=== PATIENT | female | born 1930 | race Caucasian/White ===

== ENCOUNTER 2018-05-14 12:04 | Inpatient (IN) ==
--- NOTE | 2018-05-14 12:19 | Emergency Department Note ---
Disposition Clinical Impression: Closed comminuted intertrochanteric fracture of right femur Disposition: Admitted As Inpatient Condition: Good General Adult HPI - General Chief complaint: ED Fall Stated complaint: fall Time Seen by Provider: 05/14/18 12:11 Source: patient, EMS Limitations: no limitations - History of Present Illness Pain Scale: 8 - Related Data Home Medications Medication Instructions Recorded Confirmed No Known Home Drugs 05/14/18 05/14/18 Allergies Allergy/AdvReac Type Severity Reaction Status Date / Time No Known Allergies Allergy Verified 08/26/16 11:55 Past Medical History - Past Medical History Medical history: Reports: arthritis, other Surgical history: Reports: appendectomy, cataract, cholecystectomy, hysterectomy , knee replacement (Left), orthopedic, other (Right rotator cuff repair), other (Tonsillectomy) Psychiatric history: Reports: depression - Social History Smoking Status: Former smoker Smokeless Tobacco Status: No Alcohol use: Reports: occasionally Drug use: Reports: none Physical Exam - General Limitations: no limitations General appearance: alert Course Vital Signs Temperature 98.3 F 05/14/18 12:12 Pulse Rate 67 05/14/18 12:12 Respiratory Rate 16 05/14/18 12:12 Blood Pressure 178/74 05/14/18 12:12 O2 Sat by Pulse Oximetry 100 05/14/18 12:12 Temperature 98.2 F 05/14/18 16:24 Pulse Rate 88 05/14/18 16:24 Respiratory Rate 18 05/14/18 16:24 Blood Pressure 153/61 05/14/18 16:24 O2 Sat by Pulse Oximetry 98 05/14/18 16:56 Oxygen Delivery Oxygen Delivery Room Air Medical Decision Making - Lab Data Result diagrams: 05/14/18 13:53 05/14/18 13:53 Lab Results 05/14/18 05/14/18 05/14/18 Range/Units 13:53 13:53 13:53 WBC 10.2 (4.3-11.1) K/mcL RBC 4.42 (3.82-4.97) M/mcL Hgb 13.3 (11.5-15.4) g/dL Hct 41.1 (35.3-44.9) % MCV 93.0 (83.0-100.0) fL MCH 30.1 (28.0-33.3) pg MCHC 32.4 (31.6-35.5) g/dL RDW 13.9 (11.5-14.5) % Plt Count 341 (140-400) K/mcL MPV 9.5 (9.4-12.4) fL Immature Gran % 0.4 (0-4) % Seg Neutrophils % 79.8 % Lymphocytes % 12.3 % Monocytes % 5.6 % Eosinophils % 1.6 % Basophils % 0.3 % Neutrophils # 8.2 (1.6-8.9) K/mcL Lymphocytes # 1.3 (0.6-4.6) K/mcL Monocytes # 0.6 (0.0-1.3) K/mcL Eosinophils # 0.2 (0.0-0.6) K/mcL Basophils # 0.0 (0.0-0.2) K/mcL PT 11.2 (9.4-12.1) Seconds INR 1.0 Sodium 140 (136-145) mEq/L Potassium 4.1 (3.5-5.1) mEq/L Chloride 107 (98-107) mEq/L Carbon Dioxide 25 (23-29) mEq/L BUN 20 (8-23) mg/dL Creatinine 0.84 (0.60-1.20) mg/dL Est GFR ( Amer) > 60 (> 60) Est GFR (Non-Af Amer) > 60 (> 60) BUN/Creatinine Ratio 24 (6-26) Glucose 99 (70-105) mg/dL Calculated Osmolality 293 (280-300) Calcium 9.2 (8.6-10.3) mg/dL Total Bilirubin 0.5 (0.3-1.0) mg/dL AST 18 (13-39) Units/L ALT 13 (7-52) Units/L Alkaline Phosphatase 75 (34-104) Units/L Serum Total Protein 6.4 (6.4-8.9) g/dL Albumin 3.8 (3.5-5.7) g/dL Globulin 2.6 (2.4-3.5) g/dL Albumin/Globulin Ratio 1.5 (1.1-2.2) Blood Type Antibody Screen 05/14/18 Range/Units 13:53 WBC (4.3-11.1) K/mcL RBC (3.82-4.97) M/mcL Hgb (11.5-15.4) g/dL Hct (35.3-44.9) % MCV (83.0-100.0) fL MCH (28.0-33.3) pg MCHC (31.6-35.5) g/dL RDW (11.5-14.5) % Plt Count (140-400) K/mcL MPV (9.4-12.4) fL Immature Gran % (0-4) % Seg Neutrophils % % Lymphocytes % % Monocytes % % Eosinophils % % Basophils % % Neutrophils # (1.6-8.9) K/mcL Lymphocytes # (0.6-4.6) K/mcL Monocytes # (0.0-1.3) K/mcL Eosinophils # (0.0-0.6) K/mcL Basophils # (0.0-0.2) K/mcL PT (9.4-12.1) Seconds INR Sodium (136-145) mEq/L Potassium (3.5-5.1) mEq/L Chloride (98-107) mEq/L Carbon Dioxide (23-29) mEq/L BUN (8-23) mg/dL Creatinine (0.60-1.20) mg/dL Est GFR ( Amer) (> 60) Est GFR (Non-Af Amer) (> 60) BUN/Creatinine Ratio (6-26) Glucose (70-105) mg/dL Calculated Osmolality (280-300) Calcium (8.6-10.3) mg/dL Total Bilirubin (0.3-1.0) mg/dL AST (13-39) Units/L ALT (7-52) Units/L Alkaline Phosphatase (34-104) Units/L Serum Total Protein (6.4-8.9) g/dL Albumin (3.5-5.7) g/dL Globulin (2.4-3.5) g/dL Albumin/Globulin Ratio (1.1-2.2) Blood Type O POSITIVE Antibody Screen NEGATIVE Attestation Statement - Attestation Attestation: I examined this patient and my medical decision-making was reviewed with the Resident Physician. I agree with the documented findings, disposition and treatment plan as described except to the extent set forth below. [id number] time provided Patient presents to emergency department after mechanical fall. She complains of right hip pain. She denies other injury. She appears in no acute distress on exam. Range of motion limited with flexion at the right hip due to discomfort.
--- NOTE | 2018-05-14 12:23 | Emergency Department Note ---
Disposition Clinical Impression: Closed comminuted intertrochanteric fracture of right femur Qualifiers: Encounter type: initial encounter Qualified Code(s): S72.141A - Displaced intertrochanteric fracture of right femur, initial encounter for closed fracture Disposition: Admitted As Inpatient Condition: Good Time of Disposition: 13:06 Fall HPI - General Chief Complaint: ED Fall Stated Complaint: fall Time Seen by Provider: 05/14/18 12:11 Source: patient, EMS Mode of arrival: EMS Limitations: no limitations Nursing Notes Reviewed: Yes Vital Signs Reviewed: Yes - History of Present Illness HPI Narrative: 87-year-old female presents emergency department via EMS after fall. She believes she tripped over oh feet and landed on her right hip which is a painful at this time. She was unable to get up and hit her life alert her EMS was able to bring are here for evaluation. She denies any head injury. Denies any neck pain. Denies any other prodromal symptoms prior such as chest pain headache shortness of breath. Does not take any anticoagulants. She lives at home with a significant other. She has a walker that she uses that is not prescribe to her. Pt Subjective Complaint: fall - Related Data Home Medications Medication Instructions Recorded Confirmed No Known Home Drugs 05/14/18 05/14/18 Allergies Allergy/AdvReac Type Severity Reaction Status Date / Time No Known Allergies Allergy Verified 08/26/16 11:55 All systems ED: reviewed and negative except as stated. Review of Systems: As Per HPI Constitutional: Denies: fever, chills Cardiovascular: Denies: chest pain Respiratory: Denies: dyspnea Gastrointestinal: Denies: abdominal pain, nausea Musculoskeletal: Reports: arthralgia, myalgia. Denies: back pain, neck pain Integumentary: Denies: abrasion Neurological: Denies: headache, confusion Fall PMH - Past Medical History Medical history: Reports: arthritis, other Surgical history: Reports: appendectomy, cataract, cholecystectomy, hysterectomy , knee replacement (Left), orthopedic, other (Right rotator cuff repair), other (Tonsillectomy) Psychiatric history: Reports: depression - Social History Smoking Status: Former smoker Alcohol use: Reports: occasionally Drug use: Reports: none Physical Exam - General Limitations: no limitations General appearance: alert, in no apparent distress - Head Head exam: atraumatic, normocephalic, normal inspection - Eye Eye exam: Present: normal appearance, PERRL, EOMI, other (She has macular degeneration) - ENT ENT exam: normal exam, normal oropharynx, mucous membranes moist, TM's normal bilaterally - Neck Neck exam: Present: normal inspection, full ROM, trachea midline. Absent: tenderness - Expanded Neck Exam Neck exam focused ED: Absent: midline tenderness - Chest Chest inspection: Present: normal inspection, symmetric chest wall rise - Respiratory Respiratory exam: Present: normal lung sounds bilaterally. Absent: respiratory distress, wheezes - Cardiovascular Cardiovascular exam: Present: regular rate, normal rhythm, normal heart sounds - Abdominal Exam Abdominal exam: Present: soft, Non-Tender, normal bowel sounds. Absent: tenderness, distention, guarding, rebound, rigidity - Expanded Lower Extremity Exam Hip/Pelvis exam: Present: tenderness (Right hip), shortening, other (Pain with logrolling of the right lower extremity). Absent: swelling, ecchymosis, deformity, external rotation, internal rotation Upper leg exam: Present: normal inspection Knee exam: Present: normal inspection, full ROM (Limited due to pain on the right) Lower leg exam: Present: normal inspection, full ROM Ankle exam: Present: normal inspection, full ROM Foot/toe exam: Present: normal inspection, full ROM Neurovascular/Tendon exam: Absent: motor deficit, sensory deficit, tendon deficit - Neurological Exam Neurological exam: Present: alert, oriented X3 - Psychiatric Psychiatric exam: Present: normal affect, normal mood - Skin Skin exam: Present: warm, dry, intact, normal color Course Course Narrative: Patient presents with right hip pain after mechanical fall. No head injury or neck pain. No anticoagulant use. No obvious shortening or rotation of the lower extremity that is painful to palpation. Range of motion limited to pain. X-ray to evaluate for fracture or dislocation. She has deferred pain medication at this time. - Reevaluation(s) Reevaluation #1: X-ray reveals right comminuted intertrochanteric hip fracture. Pain is tolerable at this time. Patient will be admitted. Reevaluation #2: Unfortunate ultrasound not available to perform nerve block. Patients pain is well-controlled at this time. She is able to set up at a 90 angle without any discomfort. She is currently eating a meal without any issues. Reevaluation #3: Review for labs were unremarkable. - Consultations Consultation #1: Spoke with the orthopedic on-call Dr. Alegria who will see the patient consultation requesting the patient be admitted to hospitalist service. Routine preadmission labs ordered. Time: 13:04 Consultation #2: Spoke with on-call hospitalist kimberly Thornton to admit for a closed right comminuted hip fracture. No further orders at this time Vital Signs Temperature 98.3 F 05/14/18 12:12 Pulse Rate 67 05/14/18 12:12 Respiratory Rate 16 05/14/18 12:12 Blood Pressure 178/74 05/14/18 12:12 O2 Sat by Pulse Oximetry 100 05/14/18 12:12 Temperature 98.3 F 05/14/18 12:12 Pulse Rate 77 05/14/18 14:51 Respiratory Rate 16 05/14/18 14:51 Blood Pressure 141/71 05/14/18 14:51 O2 Sat by Pulse Oximetry 97 05/14/18 14:51 Oxygen Delivery Oxygen Delivery Room Air Fall - MDM Narrative Medical decision making narrative: Patient was discussed with my attending physician who agrees with ED management and final disposition. They independently evaluated the patient. Please refer to their attestation to this encounter for additional information. This note was generated by [employer] voice recognition software and as a result grammatical or spelling errors may occur using this program. - Medical Records Medical records reviewed: Yes I reviewed the patient's medical records. - Lab Data Lab results reviewed: Yes I reviewed the patient's lab results. Result diagrams: 05/14/18 13:53 05/14/18 13:53 Lab Results 05/14/18 05/14/18 05/14/18 Range/Units 13:53 13:53 13:53 WBC 10.2 (4.3-11.1) K/mcL RBC 4.42 (3.82-4.97) M/mcL Hgb 13.3 (11.5-15.4) g/dL Hct 41.1 (35.3-44.9) % MCV 93.0 (83.0-100.0) fL MCH 30.1 (28.0-33.3) pg MCHC 32.4 (31.6-35.5) g/dL RDW 13.9 (11.5-14.5) % Plt Count 341 (140-400) K/mcL MPV 9.5 (9.4-12.4) fL Immature Gran % 0.4 (0-4) % Seg Neutrophils % 79.8 % Lymphocytes % 12.3 % Monocytes % 5.6 % Eosinophils % 1.6 % Basophils % 0.3 % Neutrophils # 8.2 (1.6-8.9) K/mcL Lymphocytes # 1.3 (0.6-4.6) K/mcL Monocytes # 0.6 (0.0-1.3) K/mcL Eosinophils # 0.2 (0.0-0.6) K/mcL Basophils # 0.0 (0.0-0.2) K/mcL PT 11.2 (9.4-12.1) Seconds INR 1.0 Sodium 140 (136-145) mEq/L Potassium 4.1 (3.5-5.1) mEq/L Chloride 107 (98-107) mEq/L Carbon Dioxide 25 (23-29) mEq/L BUN 20 (8-23) mg/dL Creatinine 0.84 (0.60-1.20) mg/dL Est GFR ( Amer) > 60 (> 60) Est GFR (Non-Af Amer) > 60 (> 60) BUN/Creatinine Ratio 24 (6-26) Glucose 99 (70-105) mg/dL Calculated Osmolality 293 (280-300) Calcium 9.2 (8.6-10.3) mg/dL Total Bilirubin 0.5 (0.3-1.0) mg/dL AST 18 (13-39) Units/L ALT 13 (7-52) Units/L Alkaline Phosphatase 75 (34-104) Units/L Serum Total Protein 6.4 (6.4-8.9) g/dL Albumin 3.8 (3.5-5.7) g/dL Globulin 2.6 (2.4-3.5) g/dL Albumin/Globulin Ratio 1.5 (1.1-2.2) Blood Type Antibody Screen 05/14/18 Range/Units 13:53 WBC (4.3-11.1) K/mcL RBC (3.82-4.97) M/mcL Hgb (11.5-15.4) g/dL Hct (35.3-44.9) % MCV (83.0-100.0) fL MCH (28.0-33.3) pg MCHC (31.6-35.5) g/dL RDW (11.5-14.5) % Plt Count (140-400) K/mcL MPV (9.4-12.4) fL Immature Gran % (0-4) % Seg Neutrophils % % Lymphocytes % % Monocytes % % Eosinophils % % Basophils % % Neutrophils # (1.6-8.9) K/mcL Lymphocytes # (0.6-4.6) K/mcL Monocytes # (0.0-1.3) K/mcL Eosinophils # (0.0-0.6) K/mcL Basophils # (0.0-0.2) K/mcL PT (9.4-12.1) Seconds INR Sodium (136-145) mEq/L Potassium (3.5-5.1) mEq/L Chloride (98-107) mEq/L Carbon Dioxide (23-29) mEq/L BUN (8-23) mg/dL Creatinine (0.60-1.20) mg/dL Est GFR ( Amer) (> 60) Est GFR (Non-Af Amer) (> 60) BUN/Creatinine Ratio (6-26) Glucose (70-105) mg/dL Calculated Osmolality (280-300) Calcium (8.6-10.3) mg/dL Total Bilirubin (0.3-1.0) mg/dL AST (13-39) Units/L ALT (7-52) Units/L Alkaline Phosphatase (34-104) Units/L Serum Total Protein (6.4-8.9) g/dL Albumin (3.5-5.7) g/dL Globulin (2.4-3.5) g/dL Albumin/Globulin Ratio (1.1-2.2) Blood Type O POSITIVE Antibody Screen NEGATIVE - Radiology Data Radiology results reviewed: Yes I reviewed the patient's radiology results. Pelvis X-Ray 05/14/18 12:18 IMPRESSION: Comminuted intertrochanteric fracture of the right femoral neck D/ / Peña Dangelo MD / Peña Dangelo MD Interpreting Provider: Peña Dangelo MD Chest X-Ray 05/14/18 12:39 IMPRESSION: No acute process. D/ / Peña Dangelo MD / Peña Dangelo MD Interpreting Provider: Peña Dangelo MD - EKG Data EKG attestation: Yes I reviewed and interpreted this EKG. EKG results narrative: EKG performed 05/14/2018 at 1315 normal sinus rhythm 64 beats per minute with right bundle branch block, no ST elevation or depression. Findings consistent with prior EKG performed 01/02/2012 with similar consistent findings. No acute ischemic changes.
[2018-05-14] MEDS ORDERED: Bupivacaine-MPF 0.25% 10 ML VIAL INFILT ONE ×2 (12:30→13:45)
[2018-05-14] MEDS ORDERED: Naloxone 0.4 MG/ML INJ IVP PRN (13:19)
[2018-05-14] MEDS ORDERED: Acetaminophen 325 MG TABLET PO PRN (13:19)
--- NOTE | 2018-05-14 13:40 | Internal Med History&Physical ---
Date of Encounter: 05/14/18 Time of Encounter: 13:00 Internal Medicine - H&P: HPI Chief complaint: Fall with the right hip pain Admitted From: Home Plans for Post Hospital Care: Home History of present illness: Ms. Medel is a 87 year old female with no significant past medical history who presents to the ER by EMS with the right hip pain and unable to bear weight after a fall happened this morning. Patient stated that she tripped over her feet and landed on her right hip since then she has severe pain in the right hip and unable to put any weight and ambulate. She had a further workup done in the emergency room, her pelvic x-ray showed comminuted inter trochanteric fracture of the right femoral neck. Patient is alert, awake and oriented to time place and person. Patient is still complaining about severe pain in the right hip. No visible bruise/laceration noticed right hip area Past Med Surg Social Fam HX - Past Medical History Medical history: arthritis, other Additional medical history: MACULAR DEGENERATION Psychiatric history: depression - Past Surgical History Surgical History: appendectomy, cataract, cholecystectomy, hysterectomy, knee replacement (Left), orthopedic, other (Right rotator cuff repair), other ( Tonsillectomy) Additional surgical history: ANKLE FRACTURE WITH REPAIR - Social History Smoking Status: Former smoker Smokeless Tobacco Status: No Alcohol use: occasionally Drug use: none - Additional Family History Additional family history: Family hsitory reviewed and non contribuitory to current problem. Internal Medicine - H&P: Meds No Known Home Drugs 05/14/18 [History] 3 Allergy/AdvReac Type Severity Reaction Status Date / Time No Known Allergies Allergy Verified 08/26/16 11:55 All Systems PM: A 10-system review of systems was performed and is negative for pertinent findings except as documented above in the HPI. Review of systems: All the systems are reviewed everything is benign except the systems and symptoms I mentioned in the history of present illness - Constitutional Vitals: Temp Pulse Resp BP Pulse Ox 98.3 F 67 16 178/74 100 05/14/18 12:12 05/14/18 12:12 05/14/18 12:12 05/14/18 12:12 05/14/18 12:12 General appearance: Present: cooperative, mild distress (With pain), A&O X 3, answers questions appropriately Exam: See below - Head Head exam: Present: atraumatic, normal inspection - Neck Neck exam general surgery: Present: full ROM, supple - Respiratory Respiratory exam: Present: decreased breath sounds. Absent: rales, respiratory distress, rhonchi, wheezes - Cardiovascular Cardiovascular exam: Present: RRR, +S1, +S2. Absent: tachycardia - GI/Abdominal GI/Abdominal exam: Present: normal bowel sounds, soft. Absent: rebound, rigid, tenderness - Extremities Exam Extremities exam: Present: tenderness (Right hip). Absent: calf tenderness, full ROM (Diminished range of motion in the right hip due to pain and fracture) , pedal edema - Back Exam Back exam: Absent: CVA tenderness (L), CVA tenderness (R) - Neurological Exam Neurological exam: Present: alert, oriented X3 - Psychiatric Psychiatric exam: Present: normal affect, normal mood - Skin Skin exam: Absent: rash Internal Med - H&P Results - Impressions ITS Impressions Pelvis X-Ray 05/14/18 12:18 IMPRESSION: Comminuted intertrochanteric fracture of the right femoral neck D/ / Peña Dangelo MD / Peña Dangelo MD Interpreting Provider: Peña Dangelo MD Chest X-Ray 05/14/18 12:39 IMPRESSION: No acute process. D/ / Peña Dangelo MD / Peña Dangelo MD Interpreting Provider: Peña Dangelo MD - Assessment and plan (1) Closed comminuted intertrochanteric fracture of right femur Current Visit: Yes Status: Acute Assessment and plan: Admit the patient into [facility] reviewed her pelvic x-ray showing comminuted inter trochanteric fracture of the right femoral neck Reviewed her labs - Normal WBC. Electrolytes WNL PT / INR - WNL EKG ordered ER attending already consulted ortho possible surgery in AM Reviewed CXR showed no acute infiltrates / consolidations seems to be moderate risk for major surgery like hip repair Qualifiers: Encounter type: initial encounter Qualified Code(s): S72.141A - Displaced intertrochanteric fracture of right femur, initial encounter for closed fracture (2) Hip pain, right Current Visit: Yes Status: Acute - Time Spent With Patient Total time spent is greater than 50% in coordination of care (as documented) at patient's floor/unit and/or counseling patient:
[2018-05-14 14:08] LABS: Basophils % 0.3 %; Eosinophils # 0.2 K/mcL (0.0-0.6); Eosinophils % 1.6 %; Hematocrit 41.1 % (35.3-44.9); Hemoglobin 13.3 g/dL (11.5-15.4); Immature Granulocytes % 0.4 % (0-4); Lymphocytes # 1.3 K/mcL (0.6-4.6); Lymphocytes % 12.3 %; Mean Corpuscular HGB Conc 32.4 g/dL (31.6-35.5); Mean Corpuscular Hemoglobin 30.1 pg (28.0-33.3); Mean Platelet Volume 9.5 fL (9.4-12.4); Monocytes # 0.6 K/mcL (0.0-1.3); Monocytes % 5.6 %; Neutrophils # 8.2 K/mcL (1.6-8.9); Platelet Count 341 K/mcL (140-400); Red Blood Count 4.42 M/mcL (3.82-4.97); Red Cell Distribution Width 13.9 % (11.5-14.5); Segmented Neutrophils % 79.8 %
[2018-05-14] MEDS ORDERED: *HR* FentaNYL (PF) 100 MCG/2 ML VIAL IVP ONE (14:09)
[2018-05-14 14:39] LABS: Prothrombin Time 11.2 Seconds (9.4-12.1)
[2018-05-14 14:44] LABS: Alanine Aminotransferase 13 Units/L (7-52); Albumin 3.8 g/dL (3.5-5.7); Albumin/Globulin Ratio 1.5 (1.1-2.2); Alkaline Phosphatase 75 Units/L (34-104); Aspartate Amino Transferase 18 Units/L (13-39); BUN/Creatinine Ratio 24 (6-26); Bilirubin,Total 0.5 mg/dL (0.3-1.0); Blood Urea Nitrogen 20 mg/dL (8-23); Calcium 9.2 mg/dL (8.6-10.3); Carbon Dioxide 25 mEq/L (23-29); Chloride 107 mEq/L (98-107); Globulin 2.6 g/dL (2.4-3.5); Glucose 99 mg/dL (70-105); Osmolality,Calculated 293 (280-300); Potassium 4.1 mEq/L (3.5-5.1); Sodium 140 mEq/L (136-145); Total Protein 6.4 g/dL (6.4-8.9); eGFR For Non-African Americans > 60 (> 60)
[2018-05-14] MEDS ORDERED: 0.9 % Sodium Chloride 1,000 ML IVC SCH (15:15)
[2018-05-14] MEDS ORDERED: 0.9 % Sodium Chloride 1,000 ML ONE (16:18)
[2018-05-14] MEDS: *HR* OxyCODONE Immed Rel 5 MG TABLET PO PRN (16:28)
[2018-05-14] MEDS: *HR* HYDROcodone/Acet 5/325 mg TABLET PO PRN (18:33)
--- NOTE | 2018-05-14 21:18 | Orthopedic Consult Note ---
Date of Encounter: 05/14/18 Time of Encounter: 21:13 History of Present Illness Chief complaint: Right hip pain HPI: Ms. Medel is a 87 year old female who sustained an injury to her right hip when she fell outdoors today. Patient has a history of macular degeneration with poor eyesight. She fell landing and injuring her right hip. She was unable to ambulate. She was brought to the emergency room where x-rays taken revealed evidence of a right hip fracture. Patient is admitted for definitive orthopedic management. I reviewed the patient's completed history and physical data as noted on the medical record. Have also reviewed the patient's studies and laboratory data. Physical examination reveals a pleasant 87-year-old woman in mild distress while lying in the hospital bed. Examination of the right lower extremity reveals to be shortened and minimally rotated. She has pain with any attempts at examination of the extremity. I reviewed a pelvic x-ray. This reveals an acute displaced/angulated, comminuted peritrochanteric-type fracture of the right proximal femur. Impression: Displaced, comminuted peritrochanteric fracture right proximal femur Recommendation: I discussed with the patient is a surgical fracture and I would recommend proceeding with intramedullary nailing of her right hip/femur. I discussed with the patient this would be a long nail to provide maximal support for this fracture. We discussed the surgical procedure at length including the potential risks and complications in cloudy but not limited to bleeding, infection, blood clots, stiffness, nerve injury, malunion and nonunion with the most common potential concerns being leg length or rotational deformities. Patient understands and agrees with the plan of care as outlined. She has signed informed consent for the surgery. We will proceed with surgery tomorrow in the operating room when operating time is available. Thank you very much for allowing me to seen care for Mrs. Medel. Sincerely, Sunil Alegria,DO Past Med Surg Social Fam HX - Past Medical History Medical history: arthritis, other Additional medical history: MACULAR DEGENERATION Psychiatric history: depression - Past Surgical History Surgical History: appendectomy, cataract, cholecystectomy, hysterectomy, knee replacement (Left), orthopedic, other (Right rotator cuff repair), other ( Tonsillectomy) Additional surgical history: ANKLE FRACTURE WITH REPAIR - Social History Smoking Status: Former smoker Smokeless Tobacco Status: No Alcohol use: occasionally Drug use: none - Family History Father Living Status: Hx Family Cancer: Yes Medications and Allergies No Known Home Drugs 05/14/18 [History] 3 Allergy/AdvReac Type Severity Reaction Status Date / Time No Known Allergies Allergy Verified 08/26/16 11:55 All Systems Reviewed: The remainder of the systems were reviewed and are negative Physical Exam - Constitutional Vitals: Temp Pulse Resp BP Pulse Ox 98.4 F 86 18 146/74 93 05/14/18 18:18 05/14/18 18:18 05/14/18 18:18 05/14/18 18:18 05/14/18 18:18 Results - Labs Result Diagrams: 05/14/18 13:53 05/14/18 13:53 Labs: All other labs normal. - Diagnostic results Pelvic AP x-ray: image reviewed Consult Discharge Plan - Plan Referrals: Momo Whaley DO [Primary Care Provider] -
[2018-05-15 02:26] LABS: Basophils % 0.3 %; Eosinophils # 0.1 K/mcL (0.0-0.6); Eosinophils % 0.6 %; Hematocrit 39.9 % (35.3-44.9); Hemoglobin 13.1 g/dL (11.5-15.4); Immature Granulocytes % 0.2 % (0-4); Lymphocytes # 1.3 K/mcL (0.6-4.6); Lymphocytes % 12.8 %; Mean Corpuscular HGB Conc 32.8 g/dL (31.6-35.5); Mean Corpuscular Hemoglobin 30.4 pg (28.0-33.3); Mean Corpuscular Volume 92.6 fL (83.0-100.0); Mean Platelet Volume 9.8 fL (9.4-12.4); Monocytes # 0.8 K/mcL (0.0-1.3); Monocytes % 7.9 %; Neutrophils # 7.8 K/mcL (1.6-8.9); Platelet Count 337 K/mcL (140-400); Red Blood Count 4.31 M/mcL (3.82-4.97); Red Cell Distribution Width 14.3 % (11.5-14.5); Segmented Neutrophils % 78.2 %
[2018-05-15 02:46] LABS: BUN/Creatinine Ratio 19 (6-26); Blood Urea Nitrogen 17 mg/dL (8-23); Calcium 9.1 mg/dL (8.6-10.3); Carbon Dioxide 26 mEq/L (23-29); Chloride 106 mEq/L (98-107); Glucose 156 mg/dL (70-105); Osmolality,Calculated 297 (280-300); Potassium 4.2 mEq/L (3.5-5.1); Sodium 141 mEq/L (136-145); eGFR For Non-African Americans 59 (> 60)
[2018-05-15] MEDS ORDERED: *HR* Enoxaparin 40 MG/0.4 ML SYRINGE SQ SCH (06:00)
[2018-05-15] MEDS: *HR* OxyCODONE Immed Rel 5 MG TABLET PO PRN ×3 (07:57→21:51)
[2018-05-15] MEDS: *HR* HYDROcodone/Acet 5/325 mg TABLET PO PRN (11:09)
--- NOTE | 2018-05-15 14:29 | Electrocardiograph Report ---
[place] [facility] Test Date: 2018-05-14 Pat Name: Perla Medel Department: [id number] Room: [facility] Gender: F [employer] Engineer: : [id number] Requested By: Iggy Donnelly Order Number: [id number] Reading MD: Andre Moreland Measurements Intervals [place] Rate: 64 P: 61 [place]: 125 QRS: 80 QRSD: 122 T: 30 QT: 432 QTc: 446 Interpretive Statements Sinus rhythm Right bundle branch block Electronically Signed On 05-15-2018 14:28:19 EDT by Andre Moreland
--- NOTE | 2018-05-15 14:31 | Internal Med Progress Note ---
<Jose Alfredo Briceno - Last Filed: 05/15/18 14:28> Hospitalist Progress Note - Encounter Date of Encounter: 05/15/18 Time of Encounter: 10:35 - Subjective Interval History: Patient in a lot of pain with movement. Reports pain medication helps but pain returns after a few hours. Does not wish to answer any questions due to pain. Does deny CP, SOB, headaches, blurry vision, abdominal pain, f/c/n/v. She did eat breakfast this morning. Aware that her surgery is today in the afternoon. Does not have any questions or concerns at this time. She is requesting anesthesia during surgery and I explained to her that she will received them. No further acute complaints. - Exam Vitals: Temp Pulse Resp BP Pulse Ox 98.2 F 75 16 149/78 96 05/15/18 12:13 05/15/18 12:13 05/15/18 12:13 05/15/18 12:13 05/15/18 12:13 Exam: General appearance: Present: cooperative, in moderate distress (With pain), A&O X 3 - Head Head exam: Present: atraumatic, normal inspection - Neck Neck exam general surgery: Present: full ROM, supple - Respiratory Respiratory exam: Present: decreased breath sounds. Absent: rales, respiratory distress, rhonchi, wheezes - Cardiovascular Cardiovascular exam: Present: RRR, +S1, +S2. Absent: tachycardia - GI/Abdominal GI/Abdominal exam: Present: normal bowel sounds, soft. Absent: rebound, rigid, tenderness - Extremities Exam Extremities exam: Present: tenderness (Right hip). Absent: calf tenderness, full ROM (Diminished range of motion in the right hip due to pain and fracture) , pedal edema - Back Exam Back exam: Absent: CVA tenderness (L), CVA tenderness (R) - Neurological Exam Neurological exam: Present: alert, oriented X3 - Psychiatric Psychiatric exam: Present: normal affect, normal mood - Skin Skin exam: Absent: rash - Assessment and Plan (1) Closed comminuted intertrochanteric fracture of right femur Current Visit: Yes Status: Acute Assessment and Plan: s/p mechanical fall Pelvic x-ray showing comminuted inter trochanteric fracture of the right femoral neck Blood work WNL CXR showed no acute infiltrates / consolidations EKG reviewed independently without acute abnormalities Ortho consulted pending intramedullary nailing today. Patient scheduled at OR3 Qualifiers: Encounter type: initial encounter Qualified Code(s): S72.141A - Displaced intertrochanteric fracture of right femur, initial encounter for closed fracture (2) Hip pain, right Current Visit: Yes Status: Acute Oxycodone, [place] as needed. Surgery today. DVT Prophylaxis: Lovenox 40mg SQ - Time Spent with Patient Total time spent is greater than 50% in coordination of care (as documented) at patient's floor/unit and/or counseling patient: Greater than 35 minutes Plan of Care Discussed with: patient Internal Medicine: Result - Labs CBC & Chem 7: 05/15/18 01:29 05/15/18 01:29 Labs: Short CBC 05/15/18 Range/Units 01:29 WBC 10.0 (4.3-11.1) K/mcL Hgb 13.1 (11.5-15.4) g/dL Hct 39.9 (35.3-44.9) % Plt Count 337 (140-400) K/mcL Neutrophils # 7.8 (1.6-8.9) K/mcL BMP 05/15/18 01:29 Sodium 141 Potassium 4.2 Chloride 106 Carbon Dioxide 26 BUN 17 Creatinine 0.90 Glucose 156 H Calcium 9.1 - ABG Interpretation ABG results: PT/INR, D-dimer PT 11.2 Seconds (9.4-12.1) 05/14/18 13:53 Consult Discharge Plan - Plan Referrals: Momo Whaley DO [Primary Care Provider] - <Gabrielle Arriaza - Last Filed: 05/15/18 15:48> Hospitalist Progress Note - Encounter Date of Encounter: 05/15/18 - Exam Vitals: Temp Pulse Resp BP Pulse Ox 98.2 F 75 16 149/78 96 05/15/18 12:13 05/15/18 12:13 05/15/18 12:13 05/15/18 12:13 05/15/18 14:52 - Assessment and Plan (1) Closed comminuted intertrochanteric fracture of right femur Current Visit: Yes Status: Acute (2) Hip pain, right Current Visit: Yes Status: Acute - Time Spent with Patient Total time spent is greater than 50% in coordination of care (as documented) at patient's floor/unit and/or counseling patient: Internal Medicine: Result - Labs CBC & Chem 7: 05/15/18 01:29 05/15/18 01:29 Labs: Short CBC 05/15/18 Range/Units 01:29 WBC 10.0 (4.3-11.1) K/mcL Hgb 13.1 (11.5-15.4) g/dL Hct 39.9 (35.3-44.9) % Plt Count 337 (140-400) K/mcL Neutrophils # 7.8 (1.6-8.9) K/mcL BMP 05/15/18 01:29 Sodium 141 Potassium 4.2 Chloride 106 Carbon Dioxide 26 BUN 17 Creatinine 0.90 Glucose 156 H Calcium 9.1 - ABG Interpretation ABG results: PT/INR, D-dimer PT 11.2 Seconds (9.4-12.1) 05/14/18 13:53 - Attending Attestation I examined this patient and my medical decision-making was reviewed with the Resident Physician Dr. Briceno. I agree with the documented findings, disposition and treatment plan as described except to the extent set forth below. Ms. Medel is a 87 year old female with no significant past medical history who presented to the ER by EMS with the right hip pain and unable to bear weight after a fall. Her pelvic x-ray showed comminuted inter trochanteric fracture of the right femoral neck. Patient is alert, awake and oriented to time place and person. Pain is tolerable with the current medication. Gen: A, A, O x 3 Chest: Diminished BS b/l Heart: S1S2+ RRR Ext: Moderate tenderness Rt hip a/p 1. Acute Rt femoral neck fx Scheduled for surgery today cont symptomatic and supportive care IV hydration on Lovenox for DVT prophylaxis <Jose Alfredo Briceno - Last Filed: 05/15/18 14:28> (1) Closed comminuted intertrochanteric fracture of right femur Qualifiers: Encounter type: initial encounter Qualified Code(s): S72.141A - Displaced intertrochanteric fracture of right femur, initial encounter for closed fracture <Gabrielle Arriaza - Last Filed: 05/15/18 15:48> (1) Closed comminuted intertrochanteric fracture of right femur Qualifiers: Encounter type: initial encounter Qualified Code(s): S72.141A - Displaced intertrochanteric fracture of right femur, initial encounter for closed fracture
[2018-05-15] MEDS ORDERED: *HR* FentaNYL (PF) 100 MCG/2 ML VIAL ONE (16:28)
[2018-05-15] MEDS ORDERED: *HR* Propofol 200 MG/20 ML VIAL IVP ONE (16:28)
--- NOTE | 2018-05-15 16:32 | Anesthesia Evaluation PreOp ---
Date of Encounter: 05/15/18 Time of Encounter: 16:29 - Past History Planned Operation: IM NAIL FIXATION OF RIGHT FEMUR IC FRACTURE Cardiac History: Denies any Significant Hx Pulmonary History: Denies Any Significant HX NEURO UROLOGIST History: Denies Any Significant HX Other Medical History: Other (MACULAR DEGENERATION, ARTHRITIS) Anesthesia History: No Prior Anesthetic Complications, Past Anesthesia (MULTIPLE ) Alcohol Use: occasionally Drug use: none Medications and Allergies No Known Home Drugs 05/14/18 [History] 3 Allergy/AdvReac Type Severity Reaction Status Date / Time No Known Allergies Allergy Verified 08/26/16 11:55 - Meds/Allergy Pre-op Review Medications Reviewed: Yes Allergies Reviewed: Yes Beta Blockers on Current Med List: No Anesthesia Results - Labs 05/15/18 01:29 05/15/18 01:29 Laboratory Last Values WBC 10.0 K/mcL (4.3-11.1) 05/15/18 01:29 RBC 4.31 M/mcL (3.82-4.97) 05/15/18 01:29 Hgb 13.1 g/dL (11.5-15.4) 05/15/18 01:29 Hct 39.9 % (35.3-44.9) 05/15/18 01:29 MCV 92.6 fL (83.0-100.0) 05/15/18 01:29 MCH 30.4 pg (28.0-33.3) 05/15/18 01:29 MCHC 32.8 g/dL (31.6-35.5) 05/15/18 01:29 RDW 14.3 % (11.5-14.5) 05/15/18 01:29 Plt Count 337 K/mcL (140-400) 05/15/18 01:29 MPV 9.8 fL (9.4-12.4) 05/15/18 01:29 Immature Gran % 0.2 % (0-4) 05/15/18 01:29 Seg Neutrophils % 78.2 % 05/15/18 01:29 Lymphocytes % 12.8 % 05/15/18 01:29 Monocytes % 7.9 % 05/15/18 01:29 Eosinophils % 0.6 % 05/15/18 01:29 Basophils % 0.3 % 05/15/18 01:29 Neutrophils # 7.8 K/mcL (1.6-8.9) 05/15/18 01:29 Lymphocytes # 1.3 K/mcL (0.6-4.6) 05/15/18 01:29 Monocytes # 0.8 K/mcL (0.0-1.3) 05/15/18 01:29 Eosinophils # 0.1 K/mcL (0.0-0.6) 05/15/18 01:29 Basophils # 0.0 K/mcL (0.0-0.2) 05/15/18 01:29 PT 11.2 Seconds (9.4-12.1) 05/14/18 13:53 INR 1.0 05/14/18 13:53 Sodium 141 mEq/L (136-145) 05/15/18 01:29 Potassium 4.2 mEq/L (3.5-5.1) 05/15/18 01:29 Chloride 106 mEq/L (98-107) 05/15/18 01:29 Carbon Dioxide 26 mEq/L (23-29) 05/15/18 01:29 BUN 17 mg/dL (8-23) 05/15/18 01:29 Creatinine 0.90 mg/dL (0.60-1.20) 05/15/18 01:29 Est GFR ( Amer) > 60 (> 60) 05/15/18 01:29 Est GFR (Non-Af Amer) 59 (> 60) L 05/15/18 01:29 BUN/Creatinine Ratio 19 (6-26) 05/15/18 01:29 Glucose 156 mg/dL (70-105) H 05/15/18 01:29 Calculated Osmolality 297 (280-300) 05/15/18 01:29 Calcium 9.1 mg/dL (8.6-10.3) 05/15/18 01:29 Total Bilirubin 0.5 mg/dL (0.3-1.0) 05/14/18 13:53 AST 18 Units/L (13-39) 05/14/18 13:53 ALT 13 Units/L (7-52) 05/14/18 13:53 Alkaline Phosphatase 75 Units/L (34-104) 05/14/18 13:53 Serum Total Protein 6.4 g/dL (6.4-8.9) 05/14/18 13:53 Albumin 3.8 g/dL (3.5-5.7) 05/14/18 13:53 Globulin 2.6 g/dL (2.4-3.5) 05/14/18 13:53 Albumin/Globulin Ratio 1.5 (1.1-2.2) 05/14/18 13:53 Blood Type O POSITIVE 05/14/18 13:53 Antibody Screen NEGATIVE 05/14/18 13:53 Anesthesia Exam Vital Signs/O2 Sat/Glucose, Most Recent Temp Pulse Resp BP Pulse Ox 98.2 F 75 16 149/78 96 05/15/18 12:13 05/15/18 12:13 05/15/18 12:13 05/15/18 12:13 05/15/18 14:52 HEIGHT 1.68 m WEIGHT 77 kg BMI 27 NPO (# of Hours): > 0800 - HEENT Mallampati: I Teeth: Missing Denture Type: Upper: Complete, Lower: Partial Oral Opening: Greater than 3 - Cardiac Rhythm: Regular - Pulmonary Breath Sounds: bilateral Clear Respiratory Effort: Symmetrical - Additional Findings Active Medications Acetaminophen (Tylenol) 650 mg PO Q6HR PRN PRN Reason: Mild Pain/Fever Stop: 11/13/18 13:20 Hydrocodone Bitart/Acetaminophen ([place] 5-325 Mg) 1 tab PO Q6HR PRN PRN Reason: Moderate Pain Stop: 11/13/18 13:20 Last Admin: 05/15/18 11:09 Dose: 1 tab Enoxaparin Sodium (Lovenox) 40 mg SQ 0600 ROBERT PRN Reason: Protocol Stop: 11/14/18 06:01 Last Admin: 05/15/18 07:51 Dose: Not Given Sodium Chloride (0.9 % Sodium Chloride) 1,000 mls @ 125 mls/hr IVC .Q8H ROBERT Stop: 11/13/18 15:16 Last Admin: 05/15/18 11:14 Dose: 125 mls/hr Naloxone HCl (Narcan) 0.4 mg IVP Q2MIN PRN PRN Reason: SEE COMMENTS Stop: 11/13/18 13:20 Oxycodone HCl (Roxicodone) 10 mg PO Q6HR PRN PRN Reason: Severe Pain Stop: 11/13/18 13:20 Last Admin: 05/15/18 15:35 Dose: 10 mg Anesthesia Assess/Plan ASA Score: 2 Anesthetic Plan: Regional (SAB), MAC Monitoring Plan: Standard Monitors Recovery Plan: PACU Anes Supervising Prov Stmt: Patient informed and consented. Risks, benefits, and alternatives discussed. Patient wishes to proceed.
[2018-05-15] MEDS ORDERED: Lidocaine -MPF 2% 2 ML VIAL ONE (17:50)
[2018-05-15] MEDS ORDERED: *HR* Phenylephrine 10 MG/ML VIAL ONE (18:09)
[2018-05-15 18:22] LABS: Bilirubin,Urine Negative (Negative); Blood,Urine Moderate (Negative); Clarity,Urine Cloudy (Clear); Color,Urine Yellow (Yellow); Glucose,Urine (UA) Normal (Normal); Ketones,Urine Negative (Negative); Leukocyte Esterase,Urine Large (Negative); Nitrite,Urine Positive (Negative); Protein,Urine 30 mg/dL (Neg-Trace); Specific Gravity,Urine 1.015 (1.010-1.025); Urobilinogen,Urine Normal (Normal)
[2018-05-15 18:25] LABS: Bacteria,Urine Many per hpf (None-Few); Squamous Epithelial Cell,Urine Moderate per lpf (None-Few); WBC,Urine TNTC per hpf (0-3)
[2018-05-15 18:35] LABS: Hyaline Casts,Urine Few per lpf (None-Few)
[2018-05-15] MEDS ORDERED: *HR* OxyCODONE Immed Rel 5 MG TABLET PO PRN (18:56)
[2018-05-15] MEDS ORDERED: *HR* Promethazine 25 MG/ML VIAL IVP PRN (18:56)
--- NOTE | 2018-05-15 20:13 | Operative Note ---
Date of procedure: 05/15/18 Pre-op diagnosis: Displaced, comminuted peritrochanteric fracture right proximal femur Post-op diagnosis: same Procedure: 1. Intramedullary nailing right hip/femur 2. Fluoroscopic guidance for IM nailing right hip/femur Implants: Synthes 11 mm x 380 mm x 130 degree angle TFNA with a 100 mm x 11 mm helical blade and a 36 mm x 5.0 mm distal locking screw Anesthesia: spinal Surgeon: Sunil Alegria Was there an senior sales assistant present: No Estimated blood loss (cc): 120 Specimen: None Condition: stable Disposition: PACU Procedure in Detail: Gross findings: Preoperative x-ray was limited to a single AP of the pelvis. There was a relatively transverse fracture with comminution across the peritrochanteric region of the right proximal femur. Bone quality was good. Head remained seated in the acetabulum. The fracture was reduced and stabilized with a long trochanteric femoral nail. Fluoroscopy was used to guide reduction and placement of the implants. Excellent alignment was obtained and maintained with no complicating features encounter. Procedure: Patient was taken the operating room and while the hospital bed was administered a subarachnoid block. After adequate level of anesthesia had been obtained the patient was transferred to the fracture table. Right lower extremity was placed in longitudinal traction left lower extremity was positioned out of harm's way and well leg santo. Fluoroscopy was used at this time to guide the reduction which was obtained with a combination of traction, slight internal rotation and adduction. Once fracture was aligned the right leg from the iliac crest to below the knee was prepped and draped in normal standard fashion for surgery. Proximal incision was made above the level of the trochanter. Dissection was carried the abundant adipose tissue down the level of the fascia which was split and dissection carried directly down onto the tip of the trochanter. Fracture hematoma was encountered and evacuated. Guide pin was placed through the tip of the trochanter and then the trochanter and proximal femur were opened up using the coring type reamer. This was followed by exchanging for a ball-tip guide blanka which was easily passed down to the knee and verified with fluoroscopy. The canal was then sequentially reamed with the flexible reamers up to and including a 12.5 mm reamer. A 11 mm x 380 mm nail was selected after measuring the length and selecting 380 mm. The nail was placed on the insertion jig and passed over the guidewire. Guidewire was removed and the nail was seated. The guide for the helical blade was then used to create the second incision distal to the trochanter. Dissection was carried through subtendinous tissues and the insertion guide was placed up against the lateral femoral cortex. At this time with multiplane are fluoroscopy pin was placed into a central position in the femoral head on all views. Pin length was measured and a 100 mm helical blade was selected. Head and neck were then reamed. Helical blade was then passed over the guidewire and impacted solidly into position. The fracture was then compressed. Helical blade was now locked from above. Multiplanar fluoroscopy was used to verify the fracture and implants are remained in excellent position. At this time the fluoroscopy was brought distally and utilized to place a single locking screw in the proximalmost hole of the nail. Free hand technique utilizing "perfect circles" was utilized. Fluoroscopy was used to verify placement of the distal locking screw. Final fluoroscopic views were taken in multiple planes. Wounds are irrigated and closed. Fascia was closed with #1 Vicryl. Deep subtendinous tissue was closed with a combination of #1 and 0 undyed Vicryl. The medius obtained his tissues were all 3 incisions were then closed with multiple inverted interrupted 2-0 undyed Vicryl followed by skin approximation with a running septic her stitches of 3-0 strata fix. Pernio skin glue was applied. Operative foam was applied and secured. Patient was now transferred from the fracture table to hospital bed, transported to the postanesthesia care unit in stable and satisfactory condition. All sponge needle evidence for counts are correct. No specimens are sent for pathology.
--- NOTE | 2018-05-15 20:26 | Anesthesia Evaluation Post Op ---
Date of Encounter: 05/15/18 Time of Encounter: 20:26 - Vital Signs Vital Signs: Vital Signs/O2 Sat, Most Current Temp Pulse Resp BP Pulse Ox 100.3 F H 107 20 169/96 100 05/15/18 20:11 05/15/18 20:11 05/15/18 20:11 05/15/18 20:11 05/15/18 20:11 - Lungs Lungs: Clear Ascult./Percussion - Airway Airway: Non-obstructed - Cardiovascular Regular Rate - Mental Status Mental Status: Confused, Baseline Status - Pain Pain Scale: 0 Pain Scale used: Numeric (1 - 10) - Nausea Vomiting Nausea Vomiting: Not Present - Hydration Hydration: NPO, Holder catheter - Discharge PostOp Status: Transfer Patient to floor
[2018-05-16] MEDS ORDERED: Acetaminophen 325 MG TABLET PO PRN (00:36)
[2018-05-16] MEDS ORDERED: Naloxone 0.4 MG/ML INJ IVP PRN (00:36)
[2018-05-16] MEDS: 0.9 % Sodium Chloride 1,000 ML IVC SCH ×2 (01:32→10:45)
[2018-05-16] MEDS: *HR* HYDROcodone/Acet 5/325 mg TABLET PO PRN (03:47)
[2018-05-16] MEDS: *HR* Enoxaparin 40 MG/0.4 ML SYRINGE SQ SCH (05:34)
[2018-05-16 05:46] LABS: Basophils % 0.2 %; Eosinophils # 0.1 K/mcL (0.0-0.6); Eosinophils % 0.6 %; Hematocrit 29.9 % (35.3-44.9); Immature Granulocytes % 0.4 % (0-4); Lymphocytes % 11.7 %; Mean Corpuscular HGB Conc 32.1 g/dL (31.6-35.5); Mean Corpuscular Hemoglobin 29.8 pg (28.0-33.3); Mean Corpuscular Volume 92.9 fL (83.0-100.0); Mean Platelet Volume 9.8 fL (9.4-12.4); Monocytes # 0.8 K/mcL (0.0-1.3); Monocytes % 9.7 %; Neutrophils # 6.5 K/mcL (1.6-8.9); Platelet Count 230 K/mcL (140-400); Red Blood Count 3.22 M/mcL (3.82-4.97); Red Cell Distribution Width 13.9 % (11.5-14.5); Segmented Neutrophils % 77.4 %
[2018-05-16 05:53] LABS: Hemoglobin 9.6 g/dL (11.5-15.4)
[2018-05-16 05:58] LABS: BUN/Creatinine Ratio 14 (6-26); Blood Urea Nitrogen 10 mg/dL (8-23); Carbon Dioxide 23 mEq/L (23-29); Chloride 111 mEq/L (98-107); Glucose 133 mg/dL (70-105); Osmolality,Calculated 289 (280-300); Potassium 3.9 mEq/L (3.5-5.1); Sodium 139 mEq/L (136-145); eGFR For Non-African Americans > 60 (> 60)
[2018-05-16] MEDS: *HR* OxyCODONE Immed Rel 5 MG TABLET PO PRN (09:40)
--- NOTE | 2018-05-16 15:26 | Internal Med Progress Note ---
Hospitalist Progress Note - Encounter Date of Encounter: 05/16/18 Time of Encounter: 15:23 - Subjective Interval History: Ms. Medel is a 87 year old female with no significant past medical history who presented to the ER by EMS with the right hip pain and unable to bear weight after a fall. Her pelvic x-ray showed comminuted inter trochanteric fracture of the right femoral neck. Patient is alert, awake and oriented to time place and person. Pain is tolerable with the current medication. No events over night - Exam Vitals: Temp Pulse Resp BP Pulse Ox 98.3 F 103 20 155/61 97 05/16/18 11:21 05/16/18 11:21 05/16/18 11:21 05/16/18 11:21 05/16/18 11:21 Exam: Gen: Alert, awake, Oriented to time,place and person Chest: Diminished breath sounds B/L, No wheezing, No crackles, No rales Heart: S1S2+ RRR No murmurs Abd: Soft, NT, BS +, No organomegaly Ext: No edema, pulses are palpable, No calf tenderness..Moderate tenderness Rt hip Neuro : Benign findings Skin: No rash. - Assessment and Plan (1) Closed comminuted intertrochanteric fracture of right femur Current Visit: Yes Status: Acute Assessment and Plan: s/p ORIF POD # 1 continue postoperative care as per ortho on Lovenox prophylaxis hemoglobin dropped down to 9.6 could be dilutional as well as cristina op blood loss continue close monitoring hemoglobin PT / OT eval may need ECF placement for short-term rehab social human services assistants consulted (2) Hip pain, right Current Visit: Yes Status: Acute Assessment and Plan: As per elbow (3) Anemia Current Visit: Yes Status: Acute Assessment and Plan: hemoglobin dropped down to 9.6 could be dilutional as well as cristina op blood loss continue close monitoring hemoglobin - Time Spent with Patient Total time spent is greater than 50% in coordination of care (as documented) at patient's floor/unit and/or counseling patient: Internal Medicine: Result - Labs CBC & Chem 7: 05/16/18 05:14 05/16/18 05:14 Labs: Short CBC 05/16/18 Range/Units 05:14 WBC 8.4 (4.3-11.1) K/mcL Hgb 9.6 L D (11.5-15.4) g/dL Hct 29.9 L (35.3-44.9) % Plt Count 230 (140-400) K/mcL Neutrophils # 6.5 (1.6-8.9) K/mcL BMP 05/16/18 05:14 Sodium 139 Potassium 3.9 Chloride 111 H Carbon Dioxide 23 BUN 10 Creatinine 0.70 Glucose 133 H Calcium 8.0 L Urine 05/15/18 Range/Units 17:18 Urine Color Yellow (Yellow) Urine Clarity Cloudy A (Clear) Urine pH 5.0 (5.0-8.0) pH Units Ur Specific [place] 1.015 (1.010-1.025) Urine Protein 30 H (Neg-Trace) mg/dL Urine Glucose (UA) Normal (Normal) mg/dL - ABG Interpretation ABG results: PT/INR, D-dimer PT 11.2 Seconds (9.4-12.1) 05/14/18 13:53 - Impressions Impressions Femur X-Ray 05/15/18 17:45 IMPRESSION: Intraoperative images were obtained for surgical control. D/ / 05/15/2018 19:34:55 Conor Tierney MD / deborah Interpreting Provider: Conor Tierney MD Fluoroscopy 05/15/18 17:45 IMPRESSION: Intraoperative images were obtained for surgical control. D/ / 05/15/2018 19:34:55 Conor Tierney MD / deborah Interpreting Provider: Conor Tierney MD Consult Discharge Plan - Plan Referrals: Momo Whaley DO [Primary Care Provider] - (1) Closed comminuted intertrochanteric fracture of right femur Qualifiers: Encounter type: initial encounter Qualified Code(s): S72.141A - Displaced intertrochanteric fracture of right femur, initial encounter for closed fracture (3) Anemia Qualifiers: Anemia type: unspecified type Qualified Code(s): D64.9 - Anemia, unspecified
[2018-05-16 18:05] LABS: Hematocrit 33.3 % (35.3-44.9); Hemoglobin 10.7 g/dL (11.5-15.4)
--- NOTE | 2018-05-16 22:01 | Orthopedics Progress Note ---
Date of Encounter: 05/16/18 Time of Encounter: 21:59 Subjective Principal diagnosis: Right hip fracture Interval history: 05/16/2018. Patient postop day 1 from IM nailing of a peritrochanteric fracture of the right hip. Patient is currently sleeping soundly. Vital signs are stable. Patient is afebrile. Dressings are clean and dry. Hemoglobin is 10.7. Impression: POD #1 IM nailing right hip fracture Recommendation: Orthopedic status is stable. Patient does not require any dressing changes as long as the Bioclusive dressings to maintain intact. Patient can shower. Would like to maintain a touchdown weightbearing only on the right lower extremity. Agree with short-term rehabilitation placement for postop recovery. Objective Vital signs: Vital Signs Temp Pulse Resp BP Pulse Ox 05/16/18 19:57 98.4 F 105 17 158/68 96 05/16/18 16:05 99.1 F 104 18 137/65 96 05/16/18 11:21 98.3 F 103 20 155/61 97 05/16/18 07:08 98.6 F 95 18 144/67 91 05/16/18 03:28 98.3 F 119 17 177/75 93 05/15/18 23:50 98.3 F 88 16 110/61 05/15/18 22:55 97 128/71 100 Intake and Output 05/16/18 05/16/18 05/16/18 07:59 15:59 23:59 Intake Total 100 / 100 60 / 60 Output Total 300 / 300 Balance -200 / -200 60 / 60 Intake: IV Fluids 100 / 100 Ancef 2,000 MG In 0.9 % Sodium 100 / 100 Chloride 100 ML @ 200 mls/hr IVPB Q8HR [facility] Rx#:[id number] Oral 60 / 60 Output: Catheter 300 / 300 - Labs CBC & BMP: 05/16/18 17:47 05/16/18 05:14 Labs: Abnormal lab results RBC 3.22 M/mcL (3.82-4.97) L 05/16/18 05:14 Hgb 10.7 g/dL (11.5-15.4) L 05/16/18 17:47 Hct 33.3 % (35.3-44.9) L 05/16/18 17:47 Chloride 111 mEq/L (98-107) H 05/16/18 05:14 Glucose 133 mg/dL (70-105) H 05/16/18 05:14 Calcium 8.0 mg/dL (8.6-10.3) L 05/16/18 05:14 Urine Clarity Cloudy (Clear) A 05/15/18 17:18 Urine Protein 30 mg/dL (Neg-Trace) H 05/15/18 17:18 Urine Blood Moderate (Negative) H 05/15/18 17:18 Urine Nitrite Positive (Negative) A 05/15/18 17:18 Ur Leukocyte Esterase Large (Negative) H 05/15/18 17:18 Urine Microscopic RBC 5-15 per hpf (0-3) H 05/15/18 17:18 Urine Microscopic WBC TNTC per hpf (0-3) H 05/15/18 17:18 Ur Squamous Epith Cells Moderate per lpf (None-Few) H 05/15/18 17:18 Urine Bacteria Many per hpf (None-Few) H 05/15/18 17:18 Consult Discharge Plan - Plan Referrals: Momo Whaley DO [Primary Care Provider] -
[2018-05-17] MEDS: *HR* OxyCODONE Immed Rel 5 MG TABLET PO PRN ×3 (00:21→17:25)
[2018-05-17 01:44] LABS: Hematocrit 28.5 % (35.3-44.9); Hemoglobin 9.3 g/dL (11.5-15.4)
[2018-05-17] MEDS: *HR* Enoxaparin 40 MG/0.4 ML SYRINGE SQ SCH (05:08)
[2018-05-17] MEDS: *HR* HYDROcodone/Acet 5/325 mg TABLET PO PRN (06:46)
--- NOTE | 2018-05-17 10:18 | Internal Med Progress Note ---
<Jose Alfredo Briceno - Last Filed: 05/17/18 16:15> Hospitalist Progress Note - Encounter Date of Encounter: 05/17/18 Time of Encounter: 10:20 - Subjective Interval History: POD#2 ORIF. Patient is doing better today. She continues to be in a lot of pain. Denies any confusion, headaches, blurry vision, chest pain, SOB. Patient denies dysuria but does report low urine output. Denies abdominal pain. Denies diarrhea, f/c/n/v. - Exam Vitals: Temp Pulse Resp BP Pulse Ox 99 F 100 16 116/67 93 05/17/18 07:27 05/17/18 07:27 05/17/18 07:27 05/17/18 07:27 05/17/18 07:27 Exam: Gen: Alert, awake, Oriented to time,place and person Chest: Diminished breath sounds B/L, No wheezing, No crackles, No rales Heart: S1S2+ RRR No murmurs Abd: Soft, NT, BS +, No organomegaly Ext: No edema, pulses are palpable, No calf tenderness..Moderate tenderness Rt hip Neuro : Benign findings Skin: No rash. - Assessment and Plan (1) Closed comminuted intertrochanteric fracture of right femur Current Visit: Yes Status: Acute Assessment and Plan: POD #2 continue postoperative care as per ortho on Lovenox prophylaxis hemoglobin dropped down to 9.3 could be dilutional as well as cristina op blood loss continue close monitoring hemoglobin PT / OT eval Pending ECF placement for short-term rehab social science teacher consulted Plan for discharge tomorrow (2) UTI (urinary tract infection) Current Visit: Yes Status: Acute Assessment and Plan: Asymptomatic UTI. We will start Keflex 500mg PO BID for 5 days. (3) Hip pain, right Current Visit: Yes Status: Acute Assessment and Plan: s/p ORIF day #2 pain management. (4) Anemia Current Visit: Yes Status: Acute Assessment and Plan: Stable. Likely dilutional. see above. DVT Prophylaxis: Lovenox 40mg SQ - Time Spent with Patient Total time spent is greater than 50% in coordination of care (as documented) at patient's floor/unit and/or counseling patient: Internal Medicine: Result - Labs CBC & Chem 7: 05/17/18 01:09 05/16/18 05:14 Labs: Short CBC 05/16/18 05/17/18 Range/Units 17:47 01:09 Hgb 10.7 L 9.3 L (11.5-15.4) g/dL Hct 33.3 L 28.5 L (35.3-44.9) % - ABG Interpretation ABG results: PT/INR, D-dimer PT 11.2 Seconds (9.4-12.1) 05/14/18 13:53 Consult Discharge Plan - Plan Referrals: Momo Whaley DO [Primary Care Provider] - <Gabrielle Arriaza - Last Filed: 05/17/18 16:37> Hospitalist Progress Note - Encounter Date of Encounter: 05/17/18 - Exam Vitals: Temp Pulse Resp BP Pulse Ox 98.4 F 98 16 124/64 93 05/17/18 15:19 05/17/18 15:19 05/17/18 15:19 05/17/18 15:19 05/17/18 15:19 - Assessment and Plan (1) Closed comminuted intertrochanteric fracture of right femur Current Visit: Yes Status: Acute (2) Hip pain, right Current Visit: Yes Status: Acute (3) Anemia Current Visit: Yes Status: Acute - Time Spent with Patient Total time spent is greater than 50% in coordination of care (as documented) at patient's floor/unit and/or counseling patient: Internal Medicine: Result - Labs CBC & Chem 7: 05/17/18 01:09 05/16/18 05:14 Labs: Short CBC 05/16/18 05/17/18 Range/Units 17:47 01:09 Hgb 10.7 L 9.3 L (11.5-15.4) g/dL Hct 33.3 L 28.5 L (35.3-44.9) % - ABG Interpretation ABG results: PT/INR, D-dimer PT 11.2 Seconds (9.4-12.1) 05/14/18 13:53 - Attending Attestation I examined this patient and my medical decision-making was reviewed with the Resident Physician Dr. Briceno. I agree with the documented findings, disposition and treatment plan as described except to the extent set forth below. Ms. Medel is a 87 year old female with no significant past medical history who presented to the ER by EMS with the right hip pain and unable to bear weight after a fall. Her pelvic x-ray showed comminuted inter trochanteric fracture of the right femoral neck. Patient is alert, awake and oriented to time place and person. Pain is tolerable with the current medication. Gen: A, A, O x 3 Chest: Diminished BS b/l Heart: S1S2+ RRR Ext: Moderate tenderness Rt hip a/p 1. Acute Rt femoral neck fx 2. POD #2 IM nailing right hip fracture PT / OT eval on Lovenox for DVT prophylaxis 3. Acute blood loss anemia stable Hb no need of transfusions cont close monitoring <Jose Alfredo Briceno - Last Filed: 05/17/18 16:15> (1) Closed comminuted intertrochanteric fracture of right femur Qualifiers: Encounter type: initial encounter Qualified Code(s): S72.141A - Displaced intertrochanteric fracture of right femur, initial encounter for closed fracture (4) Anemia Qualifiers: Anemia type: unspecified type Qualified Code(s): D64.9 - Anemia, unspecified <ThalKermit wangbu - Last Filed: 05/17/18 16:37> (1) Closed comminuted intertrochanteric fracture of right femur Qualifiers: Encounter type: initial encounter Qualified Code(s): S72.141A - Displaced intertrochanteric fracture of right femur, initial encounter for closed fracture (3) Anemia Qualifiers: Anemia type: unspecified type Qualified Code(s): D64.9 - Anemia, unspecified
[2018-05-17] MEDS: cephALEXin 500 MG CAPSULE PO SCH ×2 (13:21→20:44)
--- NOTE | 2018-05-17 18:11 | Orthopedics Progress Note ---
Date of Encounter: 05/17/18 Time of Encounter: 18:09 Subjective Principal diagnosis: Right hip fracture Interval history: 05/16/2018. Patient postop day 1 from IM nailing of a peritrochanteric fracture of the right hip. Patient is currently sleeping soundly. Vital signs are stable. Patient is afebrile. Dressings are clean and dry. Hemoglobin is 10.7. Impression: POD #1 IM nailing right hip fracture Recommendation: Orthopedic status is stable. Patient does not require any dressing changes as long as the Bioclusive dressings to maintain intact. Patient can shower. Would like to maintain a touchdown weightbearing only on the right lower extremity. Agree with short-term rehabilitation placement for postop recovery. 05/17/2018. Patient postop day #2 IM nailing right hip fracture. Patient sitting having some dinner. Having anticipated hip and leg pain. Vital signs are stable. Patient is afebrile. Dressings clean and dry. Hemoglobin 9.3. Impression: POD #2 IM nailing right hip Recommendation: As noted orthopedic status is stable. Patient to be discharged to [facility] at any time. Patient needs to be touchdown weightbearing on the right lower extremity. As long as the Bioclusive dressings are intact patient can shower. Will not need any care if intact and dry. We will need follow-up with me in about 3 weeks' time or sooner should any problems arise. I will be out of town at a conference starting tomorrow, please call orthopedics education officer should there be any need for orthopedic intervention. Objective Vital signs: Vital Signs Temp Pulse Resp BP Pulse Ox 05/17/18 15:19 98.4 F 98 16 124/64 93 05/17/18 15:03 98.4 F 102 18 137/65 95 05/17/18 11:07 98.8 F 99 16 119/70 93 05/17/18 07:27 99 F 100 16 116/67 93 05/16/18 23:14 98.5 F 106 18 158/71 95 05/16/18 19:57 98.4 F 105 17 158/68 96 Intake and Output 05/17/18 05/17/18 05/17/18 07:59 15:59 23:59 Intake Total 120 / 120 180 / 180 Output Total 0 / 0 300 / 300 Balance 120 / 120 -120 / -120 Intake: Oral 120 / 120 180 / 180 Output: Urine 0 / 0 300 / 300 - Labs CBC & BMP: 05/17/18 01:09 05/16/18 05:14 Labs: Abnormal lab results RBC 3.22 M/mcL (3.82-4.97) L 05/16/18 05:14 Hgb 9.3 g/dL (11.5-15.4) L 05/17/18 01:09 Hct 28.5 % (35.3-44.9) L 05/17/18 01:09 Chloride 111 mEq/L (98-107) H 05/16/18 05:14 Glucose 133 mg/dL (70-105) H 05/16/18 05:14 Calcium 8.0 mg/dL (8.6-10.3) L 05/16/18 05:14 Urine Clarity Cloudy (Clear) A 05/15/18 17:18 Urine Protein 30 mg/dL (Neg-Trace) H 05/15/18 17:18 Urine Blood Moderate (Negative) H 05/15/18 17:18 Urine Nitrite Positive (Negative) A 05/15/18 17:18 Ur Leukocyte Esterase Large (Negative) H 05/15/18 17:18 Urine Microscopic RBC 5-15 per hpf (0-3) H 05/15/18 17:18 Urine Microscopic WBC TNTC per hpf (0-3) H 05/15/18 17:18 Ur Squamous Epith Cells Moderate per lpf (None-Few) H 05/15/18 17:18 Urine Bacteria Many per hpf (None-Few) H 05/15/18 17:18 Consult Discharge Plan - Plan Referrals: Momo Whaley DO [Primary Care Provider] -
[2018-05-18 01:07] LABS: Hematocrit 27.6 % (35.3-44.9)
[2018-05-18] MEDS: *HR* OxyCODONE Immed Rel 5 MG TABLET PO PRN ×2 (04:59→10:54)
[2018-05-18] MEDS: *HR* Enoxaparin 40 MG/0.4 ML SYRINGE SQ SCH (04:59)
[2018-05-18] MEDS: cephALEXin 500 MG CAPSULE PO SCH (09:04)
--- NOTE | 2018-05-18 10:11 | Discharge Summary ---
<KaityJose Alfredo - Last Filed: 05/18/18 15:24> Orders not resulted at time of discharge: Pending orders 05/17/18 19:09 Culture,Urine [RM] Routine Date of Encounter: 05/18/18 Time of Encounter: 10:00 - Discharge Diagnosis (1) Closed comminuted intertrochanteric fracture of right femur Priority: Primary Status: Acute Qualifiers: Encounter type: initial encounter Qualified Code(s): S72.141A - Displaced intertrochanteric fracture of right femur, initial encounter for closed fracture (2) UTI (urinary tract infection) Priority: Secondary Status: Acute Qualifiers: Qualified Code(s): N39.0 - Urinary tract infection, site not specified (3) Hip pain, right Priority: Secondary Status: Acute (4) Anemia Priority: Secondary Status: Acute Qualifiers: Anemia type: unspecified type Qualified Code(s): D64.9 - Anemia, unspecified Hospital course: 87F PMHx macular degeneration with poor eyesight presents with right hip pain and inability to wear weight after fall yesterday morning. She tripped over her feet and landed on her right hip. She was unable to ambulate or wear weight since. Pelvic XR with comminuted intertrochanteric fracture of the right femoral neck. She is POD #2 ORIF. Plan to transfer to [facility] for rehab tomorrow. Continue with pain management with [place]. Incidental finding of UTI, started on Keflex 500 PO BID. She will continue antibiotics for 7 more days. She is also to limit movement and continue with DVT prophylaxis for Lovenox 40mg PO for 18 more days. Transfer to [facility] for rehab. Patient understands treatment plan and is agreeable. Discharge discussed with: patient - Time Spent with Patient Total time spent providing and/or coordinating discharge services: Greater than 30 minutes - Discharge Medications Prescriptions: Cephalexin [Keflex] 500 mg PO BID 7 Days #14 capsule Enoxaparin [Lovenox] 40 mg SQ 0600 18 Days #18 syringe HYDROcodone/Acet 5/325 mg [[place] 5-325 mg] 1 tab PO PRN PRN 5 Days #15 tablet PRN Reason: Moderate Pain Home Medications: Cephalexin [Keflex] 500 mg PO BID 7 Days #14 capsule 05/18/18 [Rx] Enoxaparin [Lovenox] 40 mg SQ 0600 18 Days #18 syringe 05/18/18 [Rx] HYDROcodone/Acet 5/325 mg [[place] 5-325 mg] 1 tab PO PRN PRN 5 Days #15 tablet [Rx] Allergies/Adverse Reactions: 3 Allergy/AdvReac Type Severity Reaction Status Date / Time No Known Allergies Allergy Verified 08/26/16 11:55 Date of admission: 05/14/18 15:01 Primary care physician: Momo Whaley DO Consults: 05/16/18 00:36 Consult to Occupational Therapy [CONS] Routine Comment: Evaluate, develop and implement POC Reason for Consult: ADL Does patient have active BEDREST order?: No Is patient medically & hemodynamically stable?: Yes Consult to Physical Therapy [CONS] Routine Comment: Evaluate, develop and implement POC Reason for Consult: Hip Fx Does patient have active BEDREST order?: No Is patient medically & hemodynamically stable?: No Consult to Classification Clerk [CONS] Routine Reason for SW Consult: dc - Constitutional Vitals: Temp Pulse Resp BP Pulse Ox 98.6 F 95 16 111/71 91 05/18/18 08:45 05/18/18 08:45 05/18/18 08:45 05/18/18 08:45 05/18/18 08:45 General appearance: Present: cooperative, mild distress (With pain), A&O X 3, answers questions appropriately Exam: Gen: Alert, awake, Oriented to time,place and person Chest: Diminished breath sounds B/L, No wheezing, No crackles, No rales Heart: S1S2+ RRR No murmurs Abd: Soft, NT, BS +, No organomegaly Ext: No edema, pulses are palpable, No calf tenderness..Moderate tenderness Rt hip Neuro : Benign findings Skin: No rash. - Patient Status Disposition: Transfer Inpatient Rehab Fac Condition: Fair Functional capacity at discharge: uses cane/walker Overall status at discharge: patient is progressing back to baseline - Discharge Instructions Follow Up With: Sunil Alegria DO [Non-Partnered Physician] - Momo Whaley DO [Primary Care Provider] - 06/08/18 9:20 am - Diet and Activity Activity: as per physical therapy - VTE Documentation of Mechanical Device: Venous foot pump, device <Gabrielle Arriaza - Last Filed: 05/18/18 15:32> Orders not resulted at time of discharge: Pending orders 05/17/18 19:09 Culture,Urine [RM] Routine Date of Encounter: 05/18/18 - Discharge Diagnosis (1) Closed comminuted intertrochanteric fracture of right femur Status: Acute Qualifiers: Encounter type: initial encounter Qualified Code(s): S72.141A - Displaced intertrochanteric fracture of right femur, initial encounter for closed fracture (2) Hip pain, right Status: Acute (3) Anemia Status: Acute Qualifiers: Anemia type: unspecified type Qualified Code(s): D64.9 - Anemia, unspecified Hospital course: Ms. Medel is a 87 year old female - Time Spent with Patient Total time spent providing and/or coordinating discharge services: Date of admission: 05/14/18 15:01 Primary care physician: Momo Whaley DO Consults: 05/16/18 00:36 Consult to Occupational Therapy [CONS] Routine Comment: Evaluate, develop and implement POC Reason for Consult: ADL Does patient have active BEDREST order?: No Is patient medically & hemodynamically stable?: Yes Consult to Physical Therapy [CONS] Routine Comment: Evaluate, develop and implement POC Reason for Consult: Hip Fx Does patient have active BEDREST order?: No Is patient medically & hemodynamically stable?: No Consult to Classification Clerk [CONS] Routine Reason for SW Consult: dc - Constitutional Vitals: Temp Pulse Resp BP Pulse Ox 98.0 F 105 16 149/81 93 05/18/18 12:12 05/18/18 12:12 05/18/18 12:12 05/18/18 12:12 05/18/18 12:12 - Attending Attestation I examined this patient and my medical decision-making was reviewed with the Resident Physician Dr. Briceno. I agree with the documented findings, disposition and treatment plan as described except to the extent set forth below. Ms. Medel is a 87 year old female with no significant past medical history who presented to the ER by EMS with the right hip pain and unable to bear weight after a fall. Her pelvic x-ray showed comminuted inter trochanteric fracture of the right femoral neck. Patient is alert, awake and oriented to time place and person. Pain is tolerable with the current medication. Gen: A, A, O x 3 Chest: Diminished BS b/l Heart: S1S2+ RRR Ext: Moderate tenderness Rt hip a/p 1. Acute Rt femoral neck fx 2. POD # 3 IM nailing right hip fracture PT / OT eval on Lovenox for DVT prophylaxis 3. Acute blood loss anemia stable Hb no need of transfusions cont close monitoring 4. UTI - abnormal UA Keflex for 5 days Medically stable to d/c to ECF today
--- NOTE | 2018-05-18 10:12 | Physician Discharge Referral ---
ExtendedCare Referral Info Transfer To: [facility] Level of Care: Skilled - Diagnosis (1) Closed comminuted intertrochanteric fracture of right femur Priority: Primary Status: Acute (2) UTI (urinary tract infection) Priority: Secondary Status: Acute (3) Hip pain, right Priority: Secondary Status: Acute (4) Anemia Priority: Secondary Status: Acute Prognosis: Fair Aware of Diagnosis: Patient Aware of Prognosis: Patient - Transfer Medications Home Medications: No Known Home Drugs 05/14/18 [History] Allergies/Adverse Reactions: 3 Allergy/AdvReac Type Severity Reaction Status Date / Time No Known Allergies Allergy Verified 08/26/16 11:55 - Respiratory Orders Smoking Cessation: Smoking cessation has been advised. For more information, call the [place] Tobacco Quit Line at 6-630-GGVCNOW. CERTIFICATION: I certify that the transfer of the above named patient to an Extended Care Facility is necessary for the continuing treatment of the diagnosis listed. The above information is true and accurate reflection of patient's current condition. Confidential - Redisclosure prohibited without a patient's written consent.
[2018-05-18 12:13] VITALS: BP 149/81
[2018-05-18] MEDS: *HR* HYDROcodone/Acet 5/325 mg TABLET PO PRN (15:38)
== END 2018-05-18 15:55 | DRG 481 ==
LOC: EMEROOARM 12:04 → 3NENU 15:01
PROVIDERS: ADMIT Family Medicine; ATTEND Family Medicine